=== PATIENT | male | born 1990 | race Caucasian/White ===

== ENCOUNTER 2021-10-05 13:56 | Emergency (ER) | payer OTHER ==
[~2021-10-05] VITALS: Ht 170.2 cm; Wt 77.6 kg
[2021-10-05 14:16] VITALS: BP 145/77
--- NOTE | 2021-10-05 14:25 | NUR ---
PT AMBULATED TO ER BED 6 WITH A STEADY GAIT.
--- NOTE | 2021-10-05 14:36 | NUR ---
30 Y/O MALE C/O ABDOMINAL PAIN 02/14 DESCRIBES CRAMPING RADIATES TO EPIGASTRIC AREA. PT STATES HE "COULD HAVE EATEN BAD FOOD", STATES + N/V/D X1DAY. DENIES RX PRIOR TO ARRIVAL. DENIES FEVER/CHILLS. ABD IS SOFT, FLAT, NON-TENDER TO PALPATION, BOWEL SOUNDS ACTIVE X4. LAST BM 10/05/21. DENIES PMH NKA
--- NOTE | 2021-10-05 15:00 | NUR ---
DR ZHONG AT BEDSIDE EVALUATING PT
[2021-10-05] MEDS ORDERED: ONDANSETRON 4 MG ODT PO ONE (15:10)
[2021-10-05] MEDS ORDERED: DICYCLOMINE HCL LIQUID 20 MG, ALUMINUM HYD/MAG/SIMETHICONE 30 ML, LIDOCAINE VISCOUS 2% ... PO ONE ×3 (15:10)
[2021-10-05] MEDS ORDERED: DICYCLOMINE HCL LIQUID 10 MG/5 ML UDC ONE (15:34)
[2021-10-05] MEDS ORDERED: ALUMINUM HYD/MAG/SIMETHICONE 30 ML UDC ONE (15:34)
--- NOTE | 2021-10-05 16:10 | NUR ---
DR. ZHONG AT PT BEDSIDE FOR REEVALUATION.
[2021-10-05] MEDS ORDERED: FAMO-90 PO (16:12)
[2021-10-05] MEDS ORDERED: ONDA-188 SL (16:12)
[2021-10-05 16:35] VITALS: BP 128/79
--- NOTE | 2021-10-05 16:36 | NUR ---
Patient discharged with v/s stable. Written and verbal after care instructions given FOR VIRAL GASTROENTERITIS and explained. Patient alert, oriented and verbalized understanding of instructions. Ambulatory with steady gait. All questions addressed prior to discharge. ID band removed. Patient advised to follow up with PMD. Rx of PEPCID, ZOFRAN ODT given. Patient educated on indication of medication including possible reaction and side effects. Opportunity to ask questions provided and answered.
== END 2021-10-05 16:36 | disposition home or self-care (01) ==
LOC: MED 13:56
DX: K52.9 Noninfective gastroenteritis and colitis, unspecified (principal); F15.90 Other stimulant use, unspecified, uncomplicated; Z79.899 Other long term (current) drug therapy
CPT/HCPCS: 81002; 99283; Q0162